=== PATIENT | female | born 1960 | race Caucasian/White ===

== ENCOUNTER 2022-07-04 16:41 | Emergency (ER) | payer OTHER, SELFPAY ==
[2022-07-04 16:46] VITALS: BP 129/80; PULSE 97; RESP 17; TEMP 36.7; O2SAT 96; BMI 32.3
--- NOTE | 2022-07-04 17:13 | W.ED.ABDPA2 ---
HPI - Abdominal Pain General: Chief Complaint: Abdominal Pain Stated Complaint: DIZZINESS/ SHAKY/ NAUSEOUS Time Seen by Provider: 07/04/22 17:07 History of Present Illness: Patient is a 61-year-old female comes to the ED abdominal pain. She states she has a past medical history of stage III chronic kidney disease and XLH bone disease. Symptoms started approximately 2 weeks ago. Abdominal pain is rated an 8 out of 10 and is located in the lower abdomen around her bladder. She endorses having nausea but denies any episodes of emesis. She also reports having bone pain throughout her body as well that she rates a 10 out of 10. Endorses having some difficulty urinating. She states that she has some chronic urinary incontinence but thinks it is gotten a little worse over the last 2 weeks. Denies any fevers, flank pain, hematuria or or bowel symptoms. Associated Symptoms: Reports nausea; Denies chills, constipation, diarrhea, dysuria, fever(s), hematochezia, hematuria and vomiting Review of Systems Const: Denies: fever(s), chills or fatigue Eyes: Denies: change in vision or eye discomfort ENMT: Denies: throat pain, odynophagia, nasal discharge or nasal congestion Card: Denies: chest pain, palpitations, edema, swelling of feet/ankles, dyspnea on exertion or orthopnea Resp: Denies: dyspnea, productive cough or non-productive cough GI: Reports: abdominal pain and nausea; Denies: vomiting, diarrhea, constipation or hematochezia : Reports: difficulty voiding and urinary incontinence; Denies: flank pain, dysuria or hematuria Musc: Denies: neck pain, back pain or extremity swelling Skin/Breast: Denies: rash or new lesions Neuro: Denies: headache(s), numbness in extremities or weakness in extremities PFS ED PFSH: Medical History Bone disease XLH Chronic kidney disease No pertinent family history Physical Exam Const: COMMON NORMALS: no acute distress, patient oriented x3 and alert GENERAL APPEARANCE: cooperative HENMT: COMMON NORMALS: normocephalic HEAD & SCALP: normocephalic MOUTH: Normal oral and palatal mucosa present THROAT: posterior oropharynx normal and uvula midline Neck/C-Spine: COMMON NORMALS: supple GENERAL: Yes normal visual inspection Resp: COMMON NORMALS: normal respiratory effort, No retractions, No use of accessory muscles and clear to auscultation bilaterally AUSCULTATION: clear to auscultation bilaterally Cardio: COMMON NORMALS: regular rate, regular rhythm, S1 normal heart sound present, S2 normal heart sound present, No gallops present (Cardio), No clicks present (Cardio), No murmurs present (Cardio) and Peripheral pulses 2+ throughout RATE: regular rate RHYTHM: regular rhythm HEART SOUNDS: S1 normal heart sound present and S2 normal heart sound present PERIPHERAL PULSES: Peripheral pulses 2+ throughout GI: COMMON NORMALS: Normal to inspection, nondistended, normoactive bowel sounds present, Soft to palpation and no masses PALPATION: Yes Soft to palpation, Yes Tenderness to palpation present (GI) Details: LLQ and RLQ and Yes Bladder palpation abnormal : COMMON NORMALS: Yes no CVA tenderness BLADDER/KIDNEY EXAM: Yes no CVA tenderness and Yes Bladder palpation abnormal Bladder abnormal details: tender Back/Pelvis: COMMON NORMALS: no CVA tenderness Extremity: COMMON NORMALS: normal to inspection Neuro: COMMON NORMALS: patient oriented x3 SENSORIUM/ORIENTATION: Yes alert GAIT: Yes Normal gait present Skin: GENERAL SKIN EXAM: dry skin Course Vital Signs: Vital signs: Vital Signs Temperature 98.1 F 07/04/22 16:46 Pulse Rate 71 07/04/22 18:49 Respiratory Rate 16 07/04/22 18:49 Blood Pressure 139/106 07/04/22 18:49 Pulse Oximetry 96 07/04/22 18:49 Oxygen Delivery Me thod 07/04/22 18:49 MDM - Abdominal Pain Medical Decision Making Patient is a 61-year-old female comes to the ED abdominal pain. She states she has a past medical history of stage III chronic kidney disease and XLH bone disease. Symptoms started approximately 2 weeks ago. Abdominal pain is rated an 8 out of 10 and is located in the lower abdomen around her bladder. She endorses having nausea but denies any episodes of emesis. Vitals are stable. Patient has some bilateral lower quadrant abdominal tenderness and tenderness with palpation of bladder. Rest of exam is benign. Creatinine of 2 but unknown past lab history. The rest of CBC and CMP were unremarkable. UA was unremarkable. CT of abdomen pelvis showed no acute findings. Patient's symptoms improved after IV morphine, Zofran and IV fluids. Patient was stable for discharge home and diagnosed with abdominal pain. Sent home with a prescription for couple hydrocodone and Zofran to help with nausea. Follow-up with PCP within the next week for reevaluation. Return to ED precautions given. Patient understood and agree with plan Lab Data I reviewed the patient's lab results. 07/04/22 17:25 07/04/22 17:25 Labs/Radiology: Radiology Impressions Abdomen/Pelvis CT 07/04/22 17:48 IMPRESSION: 1. Postsurgical change of previous cholecystectomy, appendectomy, and hysterectomy. 2. Mild left and sigmoid colon diverticulosis. 3. Mild lumbar scoliosis with mild spondylotic change. Laboratory Results WBC 7.9 10^3/uL (4.0-10.0) 07/04/22 17: RBC 3.76 10^6/uL (4.1-5.3) L 07/04/22 17:25 Hgb 12.1 g/dL (11.5-15.3) 07/04/22 17: Hct 36.6 % (37.0-47.0) L 07/04/22 17:25 MCV 97.3 fl (81-99) 07/04/22 17:25 MCH 32.2 pg (28.0-34.0) 07/04/22 17: MCHC 33.1 g/dL (30.0-36.0) 07/04/22 17:25 RDW 12.2 % (12.1-15.1) 07/04/22 17:25 Plt Count 150 10^3/cmm (130-400) 07/04/22 17:25 MPV 10.6 fL (7.4-10.4) H 07/04/22 17:25 Neut % (Auto) 61.0 % 07/04/22 17:25 Lymph % (Auto) 31.0 % 07/04/22 17: [place] % (Auto) 5.4 % 07/04/22 17: Eos % (Auto) 1.9 % 07/04/22 17:25 Baso % (Auto) 0.4 % 07/04/22 17:25 Neut # (Auto) 4.80 10^3/uL (1.8-7.7) 07/04/22 17:25 Lymph # (Auto) 2.4 10^3/uL (0.8-4.8) 07/04/22 17:25 [place] # (Auto) 0.4 10^3/uL (0.2-0.9) 07/04/22 17:25 Eos # (Auto) 0.2 10^3/uL (0.0-0.8) 07/04/22 17:25 Baso # (Auto) 0.0 10^3/uL (0.0-0.1) 07/04/22 17:25 Nucleated RBC % (auto) 0 % 07/04/22 17:25 Nucleated RBCs # 0.0 /100WBC 07/04/22 17:25 Sodium 136 mmol/L (136-145) 07/04/22 17:25 Potassium 4.3 mmol/L (3.5-5.1) 07/04/22 17:25 Chloride 105 mmol/L (98-107) 07/04/22 17:25 Carbon Dioxide 18 mmol/L (22-29) L 07/04/22 17:25 Anion Gap 17.3 (5-19) 07/04/22 17:25 BUN 43 mg/dL (8-23) H 07/04/22 17:25 Creatinine 2.0 mg/dL (0.5-0.9) H 07/04/22 17:25 GFR Calculation 25.4 mL/min (90-130) L 07/04/22 17:25 Glucose 111 mg/dL (65-115) 07/04/22 17:25 Calculated Osmolality 294 mOsm/kg (285-295) 07/04/22 17:25 Calcium 9.2 mg/dL (8.5-10.5) 07/04/22 17:25 Total Bilirubin 0.2 mg/dL (0.15-1.2) 07/04/22 17:25 AST 22 U/L (0-32) 07/04/22 17:25 ALT 20 U/L (0-33) 07/04/22 17:25 Alkaline Phosphatase 85 U/L (35-105) 07/04/22 17:25 Total Protein 6.5 g/dL (6.6-8.7) L 07/04/22 17:25 Albumin 3.8 g/dL (3.5-5.2) 07/04/22 17:25 Globulin 2.7 g/dL (1.3-4.6) 07/04/22 17:25 Lipase 66 U/L (13-60) H 07/04/22 17:25 Urine Color Yellow (Yellow) 07/04/22 17:59 Urine Appearance Clear (CLEAR) 07/04/22 17:59 Urine pH 7 (5-7) 07/04/22 17:59 Ur Specific [place] 1.005 (1.005-1.030) 07/04/22 17:59 Urine Protein 2+ (Negative) H 07/04/22 17:59 Urine Glucose (UA) Norm (Normal) 07/04/22 17:59 Urine Ketones Negative (Negative) 07/04/22 17:59 Urine Blood Neg (Negative) 07/04/22 17:59 Urine Nitrate Negative (Negative) 07/04/22 17:59 Urine Bilirubin Neg (Negative) 07/04/22 17:59 Urine Urobilinogen Neg mg/dL (Negative) 07/04/22 17:59 Ur Leukocyte Esterase Negative (Negative) 07/04/22 17:59 Urine RBC None /hpf (0-2) 07/04/22 17:59 Urine WBC Rare /hpf (0-5) 07/04/22 17:59 Ur Squamous Epith Cells 0-4 /hpf (0-5) H 07/04/22 17:59 Amorphous Sediment Not Reportable 07/04/22 17:59 Urine Bacteria None /hpf (NONE) 07/04/22 17:59 Discharge Plan Discharge Patient Disposition: Home Clinical Impression: Abdominal pain Qualifiers: Abdominal location: lower abdomen, unspecified Qualified Code(s): R10.30 - Lower abdominal pain, unspecified Condition: Stable Prescriptions: New ondansetron 4 mg tablet,disintegrating 4 mg PO Q8H PRN (Reason: nausea and vomiting) Qty: 15 0RF Discharge Orders: Discharge ED (Routine); Ordered 07/04/22 Ordered By: Florian Hodges Discharge Diet: Advance as tolerated and Clear Liquid Discharge Activity: Increase activity as tolerated Patient Instructions: Abdominal Pain (ED), Opioid Safety Activity Restrictions/Additional Instructions: Follow-up with medical provider as directed at your next scheduled appointment. Take medications as prescribed. Return to the ER or your medical provider if condition worsens. Please read and understand discharge instructions. Thank you for choosing [facility] for your healthcare needs today. Please realize this is an emergency room and that we are providing you with a medical screening exam and this may not be complete and all inclusive of all the testing and or work up that you may need to determine your ailment or severity of your illness. It is very important that you follow up as instructed or that you return to the Emergency Department should you have concerns or if your condition changes or worsens in any way. Coding Level of Care Code ED Nurse Extern for Demetrice Bell
[2022-07-04 17:32] LABS: Basophils % 0.4 %; Eosinophils # 0.2 10^3/uL (0.0-0.8); Eosinophils % 1.9 %; Hematocrit 36.6 % (37.0-47.0); Hemoglobin 12.1 g/dL (11.5-15.3); Lymphocytes # 2.4 10^3/uL (0.8-4.8); Mean Corpuscular HGB Conc 33.1 g/dL (30.0-36.0); Mean Corpuscular Hemoglobin 32.2 pg (28.0-34.0); Mean Corpuscular Volume 97.3 fl (81-99); Mean Platelet Volume 10.6 fL (7.4-10.4); Monocytes # 0.4 10^3/uL (0.2-0.9); Monocytes % 5.4 %; Nucleated Red Blood Cells % 0 %; Platelet Count 150 10^3/cmm (130-400); Red Blood Count 3.76 10^6/uL (4.1-5.3); Red Cell Distribution Width 12.2 % (12.1-15.1); White Blood Count 7.9 10^3/uL (4.0-10.0)
[2022-07-04 17:46] LABS: Alanine Aminotransferase 20 U/L (0-33); Albumin Level 3.8 g/dL (3.5-5.2); Alkaline Phosphatase 85 U/L (35-105); Anion Gap 17.3 (5-19); Aspartate Amino Transferase 22 U/L (0-32); Blood Urea Nitrogen 43 mg/dL (8-23); Calcium 9.2 mg/dL (8.5-10.5); Carbon Dioxide 18 mmol/L (22-29); Chloride 105 mmol/L (98-107); Globulin 2.7 g/dL (1.3-4.6); Glomerular Filtration Rate 25.4 mL/min (90-130); Glucose 111 mg/dL (65-115); Lipase 66 U/L (13-60); Osmolality Calculated 294 mOsm/kg (285-295); Potassium 4.3 mmol/L (3.5-5.1); Sodium 136 mmol/L (136-145); Total Bilirubin 0.2 mg/dL (0.15-1.2); Total Protein 6.5 g/dL (6.6-8.7)
--- NOTE | 2022-07-04 17:48 | CTR_ITS ---
PROCEDURE INFORMATION: Exam: CT Abdomen And Pelvis Without Contrast Exam date and time: 07/04/2022 6:21 PM Age: 61 years old Clinical indication: Abdominal pain; Acute; Prior surgery; Surgery date: 6+ months; Surgery type: 4 , gb, appy, hysterectomy; Additional info: Lower abdominal pain with nausea TECHNIQUE: Imaging protocol: Computed tomography of the abdomen and pelvis without contrast. Radiation optimization: All CT scans at this facility use at least one of these dose optimization techniques: automated exposure control; mA and/or kV adjustment per patient size (includes targeted exams where dose is matched to clinical indication); or iterative reconstruction. REPORTING DATA: Count of CT and Cardiac NM exams in prior 12 months: This patient has received 0 known CTs and 0 known cardiac nuclear medicine studies in the 12 months prior to the current study. COMPARISON: No relevant prior studies available. RADIATION DOSE METRICS: Total DLP (mGy-cm): 673.11 FINDINGS: Liver: Normal. No mass. Gallbladder and bile ducts: Surgical clips in the gallbladder fossa of prior cholecystectomy. No significant biliary ductal dilatation. Pancreas: Normal. No ductal dilation. Spleen: Normal. No splenomegaly. Adrenal glands: Normal. No mass. Kidneys and ureters: Normal. No hydronephrosis. Stomach and bowel: Mild left and sigmoid colon diverticulosis without CT findings of diverticulitis. Gastric contents within the stomach. No bowel obstruction. No bowel hernia is seen. Appendix: Surgical clips at the cecal level of prior appendectomy. Intraperitoneal space: Unremarkable. No free air. No significant fluid collection. Vasculature: Unremarkable. No abdominal aortic aneurysm. Lymph nodes: Unremarkable. No enlarged lymph nodes. Urinary bladder: Partially distended urinary bladder with mild nonspecific wall thickening. Reproductive: Suggestion of prior hysterectomy. Bones/joints: Mild lumbar scoliosis with mild spondylotic change. Soft tissues: Unremarkable. CT/CT abdomen pelvis wo con [id number] IMPRESSION: 1. Postsurgical change of previous cholecystectomy, appendectomy, and hysterectomy. 2. Mild left and sigmoid colon diverticulosis. 3. Mild lumbar scoliosis with mild spondylotic change.
[2022-07-04 17:59] LABS: Slide Review Slide Review Perform
[2022-07-04 18:09] LABS: Add Urine Microscopic? YES; Bilirubin Urine Neg (Negative); Blood Urine Neg (Negative); Glucose Urine UA Norm (Normal); Ketones Urine Negative (Negative); Leukocyte Esterase Urine Negative (Negative); Nitrate Urine Negative (Negative); Protein Urine 2+ (Negative); Specific Gravity, Urine 1.005 (1.005-1.030); Urine Appearance Clear (CLEAR); Urine Color Yellow (Yellow); Urobilinogen Urine Neg (Negative); pH Urine 7 (5-7)
[2022-07-04 18:20] LABS: Add Urine Culture? No; Squamous Epithelial Cell Urine 0-4 /hpf (0-5); WBC Urine RARE /hpf (0-5)
[2022-07-04] MEDS: sodium chloride 0.9% 500 ML 999 ML IV (18:34)
[2022-07-04 18:35] VITALS: RESP 14
[2022-07-04] MEDS: metoclopramide 5 mg/mL SDV 2 mL 10 MG IVP (18:35)
[2022-07-04] MEDS: morphine 4 mg/mL SDV 1 mL IVP (18:35)
[2022-07-04 18:49] VITALS: BP 139/106; PULSE 71; RESP 16; O2SAT 96
[2022-07-04] MEDS: HYDROcodone-acetaminophen 5-325 mg Tablet 2 TAB PO (19:38)
--- NOTE | 2022-07-13 15:06 | DCPLANNER ---
TCM - called patient due to no primary care physician listed in patients chart - [place] out of [place].
== END 2022-07-04 19:46 | disposition home or self-care (01) ==
PROVIDERS: Emergency Provider Physician Assistant
DX: R10.30 Lower abdominal pain, unspecified (principal); N18.30 Chronic kidney disease, stage 3 unspecified
CPT/HCPCS: 74176; 80053; 81001; 83690; 85025; 96374; 96375; 99285; J2270; J2765; J7040